=== PATIENT | male | born 1980 ===

== ENCOUNTER 2020-10-26 05:37 | Outpatient (CLI) | payer OTHER ==
[~2020-10-26] VITALS: Ht 154.9 cm; Wt 75.0 kg
== END 2020-10-26 16:33 | disposition home or self-care (01) ==
LOC: PREOP 05:37
PROVIDERS: ATTEND Surgery
DX: Z01.818 Encounter for other preprocedural examination (principal)

== ENCOUNTER 2020-11-09 11:20 | Day surgery (SDC) | payer OTHER ==
[~2020-11-09] VITALS: Ht 155 cm; Wt 75.0 kg
[2020-11-09] VITALS (8 sets, daily range): BP systolic 84–142; BP diastolic 51–93
[2020-11-09] MEDS ORDERED: LACTATED RINGERS 1,000 ML IV ONE (11:21)
[2020-11-09] MEDS ORDERED: LACTATED RINGERS 1,000 ML IV STA (11:22)
--- NOTE | 2020-11-09 12:04 | Progress Note-Pre Operative ---
Pre-Operative Progress Note H&P Reviewed The H&P was reviewed, patient examined and no changes noted. Date Seen by Provider: Nov 09, 2020 Time Seen by Provider: 12:04 Date H&P Reviewed: Nov 09, 2020 Time H&P Reviewed: 12:04 Pre-Operative Diagnosis: bleeding per rectum REGINA FRENCH DO Nov 09, 2020 12:04
[2020-11-09] MEDS ORDERED: PROPOFOL INJECTION 50 ML IV ONE (12:39)
[2020-11-09] MEDS ORDERED: MIDAZOLAM 2 MG/2 ML (VERSED) VIAL ONE (12:39)
--- NOTE | 2020-11-09 13:21 | Progress Note-Post Operative ---
Post-Operative Progess Note Surgeon (s)/President And Chief Commercial Officer (s) Surgeon REGINA FRENCH DO President And Chief Commercial Officer: na Pre-Operative Diagnosis bleeding per rectum Post-Operative Diagnosis descending colon polyp, internal hemorrhoids Procedure & Operative Findings Date of Procedure 11/09/20 Procedure Performed/Findings colonoscopy c hot bx polypectomy Anesthesia Type per steamship agent Estimated Blood Loss Estimated blood loss (mL): none Specimens/Packing Specimens Removed colon polyp REGINA FRENCH DO Nov 09, 2020 13:21
--- NOTE | 2020-11-09 13:24 | Discharge Inst-Simple/Standard ---
Discharge Inst-Standard Patient Instructions/Follow Up Plan of Care/Instructions/FU: 2 weeks Martín Activity as Tolerated: Yes Discharge Diet: Regular Diet (high fiber) REGINA FRENCH DO Nov 09, 2020 13:23
--- NOTE | 2020-11-09 14:14 | Anesthesia-General Post-Op ---
MAC Patient Condition Mental Status/LOC: Same as Preop Cardiovascular: Satisfactory Nausea/Vomiting: Absent Respiratory: Satisfactory Pain: Controlled Complications: Absent Post Op Complications Complications None Follow Up Care/Instructions Patient Instructions None needed. Anesthesiology Discharge Order Discharge Order Patient is doing well, no complaints, stable vital signs, no apparent adverse anesthesia problems. No complications reported per nursing. GAGAN DINH CRNA Nov 09, 2020 14:14
--- NOTE | 2020-11-09 22:47 | OPERATIVE REPORT ---
DATE OF SERVICE: 11/09/2020 PREOPERATIVE DIAGNOSIS: Bleeding per rectum. POSTOPERATIVE DIAGNOSIS: Descending colon polyp, internal hemorrhoids. PROCEDURE: Colonoscopy with hot biopsy polypectomy. SURGEON: Regina Resendiz DO ANESTHESIA: Per SOLAR INSTALLATION FOREMAN. ESTIMATED BLOOD LOSS: None. COMPLICATIONS: None. INDICATIONS: The patient is a 40-year-old male with blood per rectum. He understands risks and benefits of procedure and wished to proceed with procedure. Consent was signed in the chart. DESCRIPTION OF PROCEDURE: The patient was taken to the endoscopy suite, placed in left lateral recumbent position. Timeout was performed. Digital rectal exam was performed. No palpable polyps, masses or ulcerations. Some internal hemorrhoids. Scope was inserted in the rectum and advanced all the way to cecum with minimal difficulty. Prep was adequate. Scope was then slowly retracted back. There were no polyps, masses or ulcerations within the cecum, ascending and transverse colon; in descending colon, a small polyp was present, which hot biopsy polypectomy was performed. Scope was then continuously retracted back through the sigmoid without any pathology. Scope was continued to be retracted back in the rectum where it was also retroflexed noting no other pathology except for internal hemorrhoids. Scope was returned to its normal position, slowly withdrawn until completely removed. The patient tolerated procedure well without any complications, taken to recovery room in stable condition. RECOMMENDATIONS: The patient was recommended a repeat colonoscopy in 5 years due to polyp. The patient was recommended management of hemorrhoids. We will consider hemorrhoid energy therapy. We will discuss these findings and symptoms in the office in 2 weeks. Job ID: [id number] DocumentID: [id number] Dictated Date: 11/09/2020 13:23:03 Industrial Safety And Health Manager Date: 11/09/2020 22:47:01 Dictated By: REGINA RESENDIZ DO
== END 2020-11-09 14:20 | disposition home or self-care (01) ==
LOC: ENDO 11:20
PROVIDERS: ATTEND Surgery
DX: D12.4 Benign neoplasm of descending colon (principal); K62.5 Hemorrhage of anus and rectum; K64.8 Other hemorrhoids; K59.09 Other constipation

== ENCOUNTER 2021-11-07 08:25 | Outpatient (CLI) | payer SELFPAY | END 2021-11-08 09:55 | LOC: PREOP 08:25 | PROVIDERS: ATTEND Surgery | DX: Z01.818 Encounter for other preprocedural examination (principal) ==

== ENCOUNTER 2021-11-15 11:11 | Day surgery (SDC) | payer OTHER ==
[~2021-11-15] VITALS: Ht 152.4 cm; Wt 76.2 kg
[2021-11-15] VITALS (12 sets, daily range): BP systolic 85–126; BP diastolic 49–87
[2021-11-15] MEDS: LACTATED RINGERS 1,000 ML IV PRN ×2 (12:02→14:02)
--- NOTE | 2021-11-15 13:08 | Progress Note-Pre Operative ---
Pre-Operative Progress Note H&P Reviewed The H&P was reviewed, patient examined and no changes noted. Date Seen by Provider: Nov 15, 2021 Time Seen by Provider: 13:08 Date H&P Reviewed: Nov 15, 2021 Time H&P Reviewed: 13:08 Pre-Operative Diagnosis: blood per rectum, int hemorrhoids REGINA FRENCH DO Nov 15, 2021 13:08
[2021-11-15] MEDS ORDERED: LIDOCAINE PF 2% 5 ML (XYLOCAINE) VIAL ONE (13:36)
[2021-11-15] MEDS ORDERED: fentaNYL INJ 100 MCG/2 ML AMP ONE (13:36)
[2021-11-15] MEDS ORDERED: proPOfol 200 MG/20 ML (DIPRIVAN) VIAL IV ONE (13:36)
[2021-11-15] MEDS ORDERED: MIDAZOLAM 2 MG/2 ML (VERSED) VIAL ONE (13:36)
[2021-11-15] MEDS ORDERED: ONDANSETRON 4 MG/2 ML (SDV) Z0FRAN ONE (13:36)
[2021-11-15] MEDS ORDERED: SEVOFLURANE (ULTANE) 15 ML INHAL SOLN ONE ×2 (13:36→14:26)
[2021-11-15] MEDS ORDERED: LIDOCAINE/EPI 2% 1:100,00 (XYLOCAINE) 20 ML VIAL ONE (14:18)
[2021-11-15] MEDS ORDERED: KETOROLAC 30 MG/ML VIAL ONE (14:25)
--- NOTE | 2021-11-15 14:34 | Progress Note-Post Operative ---
Post-Operative Progess Note Surgeon (s)/Barrel Waterer (s) Surgeon REGINA FRENCH DO Barrel Waterer: na Pre-Operative Diagnosis blood per rectum, int hemorrhoids Post-Operative Diagnosis internal hemorrhoids Procedure & Operative Findings Date of Procedure 11/15/21 Procedure Performed/Findings flex sig, right ant and post hemorrhoids Anesthesia Type general Estimated Blood Loss Estimated blood loss (mL): minimal Specimens/Packing Specimens Removed hemorrhoids REGINA FRENCH DO Nov 15, 2021 14:34
[2021-11-15] MEDS ORDERED: ACHD5005 PO (14:35)
[2021-11-15] MEDS ORDERED: DOCU-143 PO (14:35)
--- NOTE | 2021-11-15 14:37 | Discharge Inst-Simple/Standard ---
Discharge Inst-Standard Discharge Medications New, Converted or Re-Newed RX: Transmitted to Pharmacy Patient Instructions/Follow Up Plan of Care/Instructions/FU: 2 weeks Martín Activity as Tolerated: Yes Discharge Diet: Regular Diet Other Inst to Patient Follow up Appt: Make appointment for 2 week. Instructions: No strenuous activity. May shower in 24 hours, no tub bath or soaking. Use incentive spirometer at home as directed. No Smoking Skin/Wound Care: You have a plug in the anus it should be removed in 24 hours if it has not fallen out on its own. Keep stools soft. Symptoms to Report: Appetite Changes, Extremity Discoloration, Numbness/Tingling, Swelling Inc reased, Bleeding Excessive, Eyesight Changes, Pain Increased, Urine Color Change, Constipation(Persistent), Fever over 101 degree F, Pain/Pressure in chest, Urinating Difficulty, Cough Up/Vomit Blood, Heart Beat Irreg/Pounding, Pain/Pressure in jaw, Vaginal Bleeding Increase, Cramps in feet or legs, Lightheadedness, Pain/Pressure in shoulder, Diarrhea(Persistent), Memory Changes Suddenly, Questions/Concerns, Weight gain consecutive days, Dizziness/Fainting, Nausea/Vomiting, Shortness of Breath, Weight gain over 2 pounds If questions or concerns contact your physician Or seek help at emergency department. REGINA FRENCH DO Nov 15, 2021 14:36
[2021-11-15] MEDS ORDERED: HYDROmorphone 2 MG/ML VIAL (DILAUDID) IV ONE (14:45)
[2021-11-15] MEDS ORDERED: ONDANSETRON 4 MG/2 ML (SDV) Z0FRAN IVP PRN (14:45)
--- NOTE | 2021-11-15 14:57 | Anesthesia-General Post-Op ---
General Patient Condition Mental Status/LOC: Same as Preop Cardiovascular: Satisfactory Nausea/Vomiting: Absent Respiratory: Satisfactory Pain: Controlled Complications: Absent Post Op Complications Complications None Follow Up Care/Instructions Patient Instructions None needed. Anesthesia/Patient Condition Patient Condition Patient is doing well, no complaints, stable vital signs, no apparent adverse anesthesia problems. No complications reported per nursing. D/C home per [facility] [place] Criteria: Yes KERRI DO CRNA Nov 15, 2021 14:57
--- NOTE | 2021-11-15 15:39 | OPERATIVE REPORT ---
DATE OF SERVICE: 11/15/2021 PREOPERATIVE DIAGNOSIS: Blood per rectum, internal hemorrhoids. POSTOPERATIVE DIAGNOSIS: Internal hemorrhoids. PROCEDURE: Flexible sigmoidoscopy, right anterior and posterior hemorrhoidectomy. SURGEON: Regina Resendiz DO ANESTHESIA: General. ESTIMATED BLOOD LOSS: Minimal. COMPLICATIONS: None. SPECIMENS: Hemorrhoids. INDICATIONS: The patient is a 41-year-old male who has been having blood per rectum and has history of internal hemorrhoids. He understands risks and benefits of procedure and wishes to proceed. Consent was signed in the chart. DESCRIPTION OF PROCEDURE: The patient was taken to the operating suite, placed in lithotomy position. Timeout was performed. Digital rectal exam was performed. No palpable polyps, masses or ulcerations. Some internal hemorrhoidal disease. Present scope was inserted in the rectum, advanced through the rectum into the sigmoid colon, into the descending colon. No polyps, masses or ulcerations. Scope was slowly retracted back. Prep was adequate. No polyps, masses or ulcerations within the descending, sigmoid and rectum. Scope was retroflexed noting internal hemorrhoids. Scope was returned to its normal position, slowly withdrawn until completely removed. The patient was then prepped and draped in sterile fashion. ditmar retractor was inserted, visualizing slightly enlarged right anterior and posterior internal hemorrhoid. I grasped, elevated, the Harmonic was then used to excise it. Once removed, 10 mL of 1% lidocaine with epinephrine was used to do a block on the right pudendal block. A plug was then created using Gelfoam and Vaseline gauze was inserted into the anus and rectum to apply pressure. Hemostasis was present before doing this. The patient tolerated the procedure well without any complications, taken to recovery room in stable condition. CC: [facility] - requested, unable to deliver. Job ID: [id number] DocumentID: [id number] Dictated Date: 11/15/2021 14:42:24 Converter Skimmer Date: 11/15/2021 15:39:04 Dictated By: REGINA RESENDIZ DO [facility] HOSPITALVirgie
[2021-11-15] MEDS ORDERED: HYDROcodone/APAP 5 MG/325 MG (LORTAB) TAB PO ONE (16:00)
== END 2021-11-15 17:15 | disposition home or self-care (01) ==
LOC: SDC 11:11
PROVIDERS: ATTEND Surgery
DX: K64.8 Other hemorrhoids (principal); K62.5 Hemorrhage of anus and rectum
CPT/HCPCS: 87081; 88304

== ENCOUNTER 2022-08-08 05:36 | Outpatient (CLI) | payer SELFPAY ==
[~2022-08-08] VITALS: Ht 152.4 cm; Wt 75.0 kg
[~2022-08-08 05:36] MED LIST: ACHD5005 PO; DOCU-143 PO
== END 2022-08-08 16:50 | disposition home or self-care (01) ==
LOC: PREOP 05:36
PROVIDERS: ATTEND Surgery
DX: Z01.818 Encounter for other preprocedural examination (principal)

== ENCOUNTER 2022-08-15 10:21 | Day surgery (SDC) | payer OTHER ==
[~2022-08-15] VITALS: Ht 152.4 cm; Wt 75.0 kg
[2022-08-15 10:30] VITALS: BP 123/74
[2022-08-15] MEDS ORDERED: LACTATED RINGERS 1,000 ML IV STA (10:30)
[2022-08-15] MEDS ORDERED: LACTATED RINGERS 1,000 ML IV ONE (10:35)
--- NOTE | 2022-08-15 10:51 | Progress Note-Pre Operative ---
Pre-Operative Progress Note Date of Available H&P: Jul 26, 2022 Date H&P Reviewed: Aug 15, 2022 Time H&P Reviewed: 10:50 History & Physical: H&P Reviewed, Patient Examed, No changes noted Pre-Operative Diagnosis: Hx of rectal bleeding REGINA FRENCH DO Aug 15, 2022 10:51
[2022-08-15] MEDS ORDERED: PROPOFOL INJECTION 50 ML IV ONE (11:48)
--- NOTE | 2022-08-15 12:02 | Anesthesia-General Post-Op ---
MAC Patient Condition Mental Status/LOC: Same as Preop Cardiovascular: Satisfactory Nausea/Vomiting: Absent Respiratory: Satisfactory Pain: Controlled Complications: Absent Post Op Complications Complications None Follow Up Care/Instructions Patient Instructions None needed. Anesthesiology Discharge Order Discharge Order Patient is doing well, no complaints, stable vital signs, no apparent adverse anesthesia problems. No complications reported per nursing. FABIO ELDER CRNA Aug 15, 2022 12:02
--- NOTE | 2022-08-15 12:04 | Discharge Inst-Simple/Standard ---
Discharge Inst-Standard Patient Instructions/Follow Up Plan of Care/Instructions/FU: Follow up on as needed basis Activity as Tolerated: Yes Discharge Diet: Regular Diet REGINA FRENCH DO Aug 15, 2022 12:04
[2022-08-15 12:07] VITALS: BP 97/58
[2022-08-15 12:12] VITALS: BP 102/55
[2022-08-15 12:19] VITALS: BP 107/62
[2022-08-15 12:24] VITALS: BP 107/62
--- NOTE | 2022-08-15 20:31 | OPERATIVE REPORT ---
DATE OF SERVICE: 08/15/2022 PREOPERATIVE DIAGNOSIS: Rectal bleeding. POSTOPERATIVE DIAGNOSIS: Normal colonoscopy. PROCEDURE: Colonoscopy. SURGEON: Dr. Resendiz. ANESTHESIA: Per SPRING MANUFACTURING SET UP TECHNICIAN. ESTIMATED BLOOD LOSS: None. COMPLICATIONS: None. INDICATIONS: The patient is a 42-year-old male with complaint of rectal bleeding. He understands risks and benefits of procedure and wished to proceed. Consent was signed on chart. DESCRIPTION OF PROCEDURE: The patient was taken to endoscopy suite, placed in the left lateral recumbent position. Timeout was performed. Digital rectal exam was performed. There was no palpable polyps, masses or ulcerations. Scope was inserted in the rectum, advanced through the rectum into the sigmoid colon, not noting any evidence of any site of possible bleeding, so the scope was continued to be advanced all the way to the cecum with minimal difficulty. Prep was adequate. Scope was slowly retracted back. No polyps, masses or ulcerations in the cecum. The ileocecal valve was intubated. The ileum had normal appearance. No evidence of any bleeding. Scope was retracted back into the colon and continued to be retracted back. No polyps, masses or ulcerations within the ascending, transverse, descending and sigmoid colon. Once in the rectum, scope was retroflexed, no other pathology. Scope was returned to its normal position and slowly withdrawn until completely removed. The patient tolerated the procedure well without complications, taken to recovery in stable condition. RECOMMENDATIONS: The patient will follow up on an as needed basis. He will need repeat colonoscopy for screening guidelines. Job ID: [id number] DocumentID: [id number] Dictated Date: 08/15/2022 12:03:45 Press Tender Date: 08/15/2022 20:29:00 Dictated By: REGINA RESENDIZ DO
== END 2022-08-15 12:44 | disposition home or self-care (01) ==
LOC: ENDO 10:21
PROVIDERS: ATTEND Surgery
DX: K62.5 Hemorrhage of anus and rectum (principal); K64.8 Other hemorrhoids; Z28.310 Unvaccinated for COVID-19

== ENCOUNTER 2022-09-01 17:36 | Emergency (ER) | payer OTHER ==
[~2022-09-01] VITALS: Ht 152.4 cm; Wt 75.2 kg
[2022-09-01 18:03] LABS: BASOPHILS # (AUTO) 0.1 10^3/uL (0.0-0.1); BASOPHILS % (AUTO) 1 % (0-10); EOSINOPHILS # (AUTO) 0.3 10^3/uL (0.0-0.3); EOSINOPHILS % (AUTO) 4 % (0-10); HEMATOCRIT 43 % (40-54); HEMOGLOBIN 14.8 g/dL (13.3-17.7); LYMPHOCYTES # (AUTO) 2.5 10^3/uL (1.0-4.0); LYMPHOCYTES % (AUTO) 36 % (12-44); MEAN CORPUSCULAR HEMOGLOBIN 29 pg (25-34); MEAN CORPUSCULAR HGB CONC 35 g/dL (32-36); MEAN CORPUSCULAR VOLUME 83 fL (80-99); MEAN PLATELET VOLUME 11.2 fL (9.0-12.2); MONOCYTES # (AUTO) 0.5 10^3/uL (0.0-1.0); MONOCYTES % (AUTO) 7 % (0-12); NEUTROPHILS # (AUTO) 3.6 10^3/uL (1.8-7.8); NEUTROPHILS % (AUTO) 52 % (42-75); PLATELET COUNT 252 10^3/uL (130-400)
[2022-09-01 18:06] LABS: ALBUMIN 4.4 GM/DL (3.2-4.5); POTASSIUM 3.8 MMOL/L (3.6-5.0)
[2022-09-01 18:07] LABS: CALCIUM 9.3 MG/DL (8.5-10.1)
[2022-09-01 18:08] LABS: TOTAL PROTEIN 7.6 GM/DL (6.4-8.2)
[2022-09-01 18:09] LABS: PROTHROMBIN TIME PATIENT 13.1 SEC (12.2-14.7)
[2022-09-01 18:10] LABS: BILIRUBIN,TOTAL 0.6 MG/DL (0.1-1.0)
--- NOTE | 2022-09-01 18:11 | Diagnostic Imaging Report ---
INDICATION: Chest pain. FINDINGS: The lungs are clear. No failure, effusion or pneumothorax. IMPRESSION: Normal frontal chest. Dictated by: Dictated on workstation # [id number]
[2022-09-01 18:12] LABS: CREATININE SERUM 0.9 MG/DL (0.60-1.30)
[2022-09-01] MEDS ORDERED: KETOROLAC 15 MG/ML VIAL IVP ONE (18:30)
--- NOTE | 2022-09-01 18:49 | ED Cardiac General ---
History of Present Illness General Chief Complaint: Chest Pain Stated Complaint: CHEST PAIN Nursing Triage Note: PT AMB TO RM 1 WITH CC OF CHEST PAIN WITH TROUBLE BREATHING. INTERPRETERED USED DURING TRIAGE. PT STATES CHEST PAIN STARTED 1 MONTH AGO BUT WORSENED YESTERDAY "THOUGH HE WAS HAVING A HEART ATTACK AT WORK." PT REPORTS WAS SEEN AT [facility] TODAY AND SENT HERE. PT STATES WAS GIVEN 4 BABY ASA AT CLINIC. TAKES 1 ASA DAILY AND TOOK IBUPROFEN. Source: patient Exam Limitations: no limitations (BÁRBARA ST APRN) History of Present Illness Date Seen by Provider: Sep 01, 2022 Time Seen by Provider: 17:58 Initial Comments 42-year-old male presents to the ER from the [facility] clinic. He went to the clinic today due to chest pain, states the pain started 3 weeks ago but worse today. Reports the pain is in the right chest and right shoulder. States the pain is worse with movement. States he had 1 episode of emesis today. He reports he also has intermittent left-sided chest pain. States the left-sided chest pain started at 1 PM today and is still present, but mild. States he gets left-sided chest pain every day, thinks it is related to depression and anxiety. Patient tearful when talking about this. States that this pain comes on randomly, is not related to exertion. Denies personal cardiac history. His mother of an OK at age 55. Denies fevers, cough, abdominal pain, diarrhea. ASA po HISTOLOGY SPECIALIST: Yes (324MG GIVEN AT [facility] ) (BÁRBARA ST APRN) Allergies and Home Medications Allergies Coded Allergies: No Known Drug Allergies (Verified , 11/09/20) Patient Home Medication List Home Medication List Reviewed: Yes (BÁRBARA ST APRN) Docusate Sodium (Colace) 100 Mg Capsule, 100 MG PO BID Prescribed by: REGINA FRENCH on 11/15/21 1435 Hydrocodone/Acetaminophen (Hydrocodone-Acetamin 5-325 mg) 5 Mg-325 Mg Tablet, 1 EACH PO Q4H PRN for PAIN-MODERATE (5-7) Prescribed by: REGINA FRENCH on 11/15/21 1435 Review of Systems Review of Systems Constitutional: see HPI (BÁRBARA ST APRN) Past Plcgens-Mrysct-Bwcdev Hx Patient Social History Tobacco Use?: No Substance use?: No Alcohol Use?: Yes Alcohol type: Beer Alcohol Frequency: Once in a while Pt feels they are or have been: No (BÁRBARA ST APRN) Immunizations Up To Date First/Initial COVID19 Vaccinat: 2020 Second COVID19 Vaccination Goyo: 2020 Third COVID19 Vaccination Date: 2020 (BÁRBARA ST APRN) Seasonal Allergies Seasonal Allergies: No (BÁRBARA ST APRN) Past Medical History Surgeries: Yes (COLONOSCOPY) Respiratory: No Currently Using CPAP: No Currently Using BIPAP: No Cardiac: No Neurological: No Genitourinary: No Gastrointestinal: Yes (BLOOD PER RECTUM) Hemorrhoids Musculoskeletal: No Endocrine: No HEENT: No Cancer: No Psychosocial: No Integumentary: No Blood Disorders: No (BÁRBARA ST APRN) Physical Exam Vital Signs Vital Signs - First Documented 09/01/22 17:40 Temp 36.8 Pulse 82 Resp 12 B/P (MAP) 153/89 (110) Pulse Ox 99 O2 Delivery Room Air (RASHARD,PIOTR K DO) Vital Signs Capillary Refill : Less Than 3 Seconds (BÁRBARA ST APRN) Height, Weight, BMI Height: '" Weight: lbs. oz. kg; 32.00 BMI Method: General Appearance: No Apparent Distress, WD/WN Neck: Normal Inspection, Supple Respiratory: Lungs Clear, Normal Breath Sounds, No Accessory Muscle Use, No Respiratory Distress, Other (Right pectoral muscle tender to palpation) Cardiovascular: Regular Rate, Rhythm, No Edema, No Gallop, No JVD, No Murmur Gastrointestinal: Normal Bowel Sounds Extremity: Normal Range of Motion (Normal range of motion of right shoulder), Other (Tenderness to right shoulder, and right upper back) Neurologic/Psychiatric: Alert, Oriented x3, Normal Mood/Affect Skin: Normal Color, Warm/Dry (BÁRBARA ST APRN) Progress/Results/Core Measures Results/Orders Lab Results Laboratory Tests Test 09/01/22 17:49 Range/Units White Blood Count 7.0 4.3-11.0 10^3/uL Red Blood Count 5.12 4.30-5.52 10^6/uL Hemoglobin 14.8 13.3-17.7 g/dL Hematocrit 43 40-54 % Mean Corpuscular Volume 83 80-99 fL Mean Corpuscular Hemoglobin 29 25-34 pg Mean Corpuscular Hemoglobin Concent 35 32-36 g/dL Red Cell Distribution Width 12.1 10.0-14.5 % Platelet Count 252 130-400 10^3/uL Mean Platelet Volume 11.2 9.0-12.2 fL Immature Granulocyte % (Auto) 0 % Neutrophils (%) (Auto) 52 42-75 % Lymphocytes (%) (Auto) 36 12-44 % Monocytes (%) (Auto) 7 0-12 % Eosinophils (%) (Auto) 4 0-10 % Basophils (%) (Auto) 1 0-10 % Neutrophils # (Auto) 3.6 1.8-7.8 10^3/uL Lymphocytes # (Auto) 2.5 1.0-4.0 10^3/uL Monocytes # (Auto) 0.5 0.0-1.0 10^3/uL Eosinophils # (Auto) 0.3 0.0-0.3 10^3/uL Basophils # (Auto) 0.1 0.0-0.1 10^3/uL Immature Granulocyte # (Auto) 0.0 0.0-0.1 10^3/uL Prothrombin Time 13.1 12.2-14.7 SEC INR Comment 1.0 0.8-1.4 Activated Partial Thromboplast Time 28 24-35 SEC Sodium Level 138 135-145 MMOL/L Potassium Level 3.8 3.6-5.0 MMOL/L Chloride Level 103 98-107 MMOL/L Carbon Dioxide Level 24 21-32 MMOL/L Anion Gap 11 5-14 MMOL/L Blood Urea Nitrogen 13 7-18 MG/DL Creatinine 0.90 0.60-1.30 MG/DL Estimat Glomerular Filtration Rate 108 BUN/Creatinine Ratio 14 Glucose Level 92 70-105 MG/DL Calcium Level 9.3 8.5-10.1 MG/DL Corrected Calcium 9.0 8.5-10.1 MG/DL Magnesium Level 2.0 1.6-2.4 MG/DL Total Bilirubin 0.6 0.1-1.0 MG/DL Aspartate Amino Transf (AST/SGOT) 21 5-34 U/L Alanine Aminotransferase (ALT/SGPT) 34 0-55 U/L Alkaline Phosphatase 89 40-136 U/L Myoglobin 41.0 10.0-92.0 NG/ML Troponin I < 0.028 <0.028 NG/ML Total Protein 7.6 6.4-8.2 GM/DL Albumin 4.4 3.2-4.5 GM/DL (RASHARD,PIOTR K DO) Medications Given in ED Current Medications Medications Dose Ordered Sig/Chris Route Start Time Stop Time Status Last Admin Dose Admin Ketorolac Tromethamine 15 mg ONCE ONCE IVP 09/01/22 18:30 09/01/22 18:31 DC 09/01/22 18:32 15 MG (RASHARD,PIOTR K DO) Vital Signs/I&O 09/01/22 09/01/22 17:40 19:09 Temp 36.8 Pulse 82 80 Resp 12 13 B/P (MAP) 153/89 (110) 113/81 Pulse Ox 99 97 O2 Delivery Room Air Room Air (RASHARD,PIOTR K DO) Blood Pressure Mean: 110 Progress Progress Note #1: Time: 18:21 Progress Note Patient seen and evaluated, sitting on bed, no acute distress. Tearful during part of the assessment. Based on exam and symptoms, differential diagnosis includes but is not limited to musculoskeletal pain, chest wall pain, OK, pneumonia. Work-up initiated including EKG, CBC, CMP, magnesium, troponin, coags, this x-ray. EKG reviewed, insignificant Q waves noted in leads II, III and aVF. No ST elevation or T wave inversion. Progress Note #2: Time: 18:45 Progress Note Labs and x-ray reviewed. CBC grossly normal, CMP grossly normal, troponin negative, magnesium ernesto, the patient's coagulation studies show no evidence of significant coagulopathy or indirect evidence of hepatic dysfunction. L. Chest x-ray negative for acute cardiopulmonary process. Results discussed with patient. Discharge instructions and return precautions provided. (BÁRBARA ST APRN) Initial ECG Impression Date: Sep 01, 2022 Initial ECG Impression Time: 17:58 Initial ECG Rate: 79 Initial ECG Rhythm: Normal Sinus Initial ECG Intervals: Normal Initial ECG Impression: Normal Initial ECG Comparisson: No Previous ECG Available Comment Insignificant Q waves noted in leads II, III and aVF. No ST elevation or T wave inversion. (BÁRBARA ST APRN) Diagnostic Imaging Diagonstic Imaging: Xray Plain Films/CT/US/NM/MRI: chest Comments [facility], [facility]. [place], [place] NAME: MANJIT ANTONIO [facility] REC#: [id number] PT STATUS: REG ER : 1980 PHYSICIAN: BÁRBARA ST APRN ADMIT DATE: 09/01/22/ER Signed Date of Exam:09/01/22 CHEST 1 VIEW, AP/PA ONLY INDICATION: Chest pain. FINDINGS: The lungs are clear. No failure, effusion or pneumothorax. IMPRESSION: Normal frontal chest. Dictated by: Dictated on workstation # [id number] Dict: 09/01/22 1809 Trans: 09/01/221822 PJE [id number] Interpreted by: DENIS JUNIOR Electronically signed by: DENIS JUNIOR 09/01/221822 (BÁRBARA ST APRN) Departure Impression Primary Impression: Chest pain Additional Impression: Shoulder pain Disposition: 01 HOME, SELF-CARE Condition: Stable Departure-Patient Inst. Ref[facility]: [facility] [place] Primary Care Physician TAYLER ELDRIDGE MD FACP FACC CCDS Patient Instructions: Chest Pain That Is Not Caused by the Heart (DC) Add. Discharge Instructions: Follow-up with cardiology for the abnormality noted on your EKG. You may take ibuprofen or Tylenol as needed for your right shoulder pain. You may use ice or heat as needed for pain. Follow-up with your primary care provider regarding your musculoskeletal right shoulder pain as well as your anxiety/depression. Return for worsening or uncontrolled chest pain, shortness of breath, lightheadedness, feeling faint, nausea/vomiting, or any other new, concerning, or worsening symptoms. All discharge instructions reviewed with patient and/or family. Voiced understanding. ATTENDING PHYSICIAN NOTE: I WAS PHYSICALLY PRESENT ER PHYSICIAN, BUT I WAS NOT INVOLVED IN ANY DECISION MAKING OR ANY CARE OF THIS PATIENT, AND I AM NOT COLLABORATING PHYSICIAN. (PIOTR WETZEL DO) B[address]RBARA ST APRN Sep 01, 2022 18:49 PIOTR WETZEL DO Sep 02, 2022 00:30
[2022-09-01 19:09] VITALS: BP 113/81
== END 2022-09-01 19:11 | disposition home or self-care (01) ==
LOC: EDUNIT# 17:36 → ER 17:38
DX: R07.89 Other chest pain (principal); M25.511 Pain in right shoulder; M54.6 Pain in thoracic spine; Z82.49 Family history of ischemic heart disease and other diseases of the circulatory system
CPT/HCPCS: 36415; 71045; 80053; 83735; 83874; 84484; 85025; 85610; 85730; 93005; 93041